=== PATIENT | female | born 1965 | race Caucasian/White ===

== ENCOUNTER → 2019-11-11 | Outpatient (CLI) | payer OTHER ==
[~2019-11-11] MED LIST: PERCOCET 325 MG1 TA2 PO
== END | disposition home or self-care (01) ==
LOC: MAMMO 11:30
DX: Z12.31 Encounter for screening mammogram for malignant neoplasm of breast (principal); N64.89 Other specified disorders of breast

== ENCOUNTER → 2019-12-09 | Outpatient (CLI) | payer OTHER | END | disposition home or self-care (01) | LOC: MAMMO 12:34 | DX: N63.0 Unspecified lump in unspecified breast (principal); R92.8 Other abnormal and inconclusive findings on diagnostic imaging of breast ==

== ENCOUNTER → 2020-02-15 | Outpatient (CLI) | payer OTHER | END | disposition home or self-care (01) | LOC: COVID19 00:35 | PROVIDERS: ATTEND Physician Assistant | DX: Z20.828 Contact with and (suspected) exposure to other viral communicable diseases (principal) ==

== ENCOUNTER → 2021-02-01 | Outpatient (CLI) | payer OTHER | END | disposition home or self-care (01) | LOC: MAMMO 10:40 | PROVIDERS: ATTEND Physician Assistant | DX: Z12.31 Encounter for screening mammogram for malignant neoplasm of breast (principal); N64.89 Other specified disorders of breast; F17.210 Nicotine dependence, cigarettes, uncomplicated ==

== ENCOUNTER → 2021-02-22 | Outpatient (CLI) | payer OTHER | END | disposition home or self-care (01) | LOC: MAMMO 09:51 | PROVIDERS: ATTEND Physician Assistant | DX: R92.8 Other abnormal and inconclusive findings on diagnostic imaging of breast (principal) ==

== ENCOUNTER → 2022-05-07 | Outpatient (CLI) | payer OTHER | END | disposition home or self-care (01) | LOC: LAB 15:20 → RAD 15:20 | PROVIDERS: ATTEND Internal Medicine | DX: G62.9 Polyneuropathy, unspecified (principal) ==

== ENCOUNTER → 2022-05-08 | Outpatient (CLI) | payer OTHER | END | disposition home or self-care (01) | LOC: US 11:00 | PROVIDERS: ATTEND Internal Medicine | DX: R79.89 Other specified abnormal findings of blood chemistry (principal); R20.0 Anesthesia of skin ==

== ENCOUNTER → 2024-12-08 | Outpatient (CLI) | payer OTHER | END | disposition home or self-care (01) | LOC: US 14:00 | PROVIDERS: ATTEND Nurse Practitioner Family | DX: M71.21 Synovial cyst of popliteal space [Baker], right knee (principal); R60.0 Localized edema ==